=== PATIENT | female | born 1985 | race African-American/Black ===

== ENCOUNTER 2021-12-28 11:28 | Emergency (ER) | payer MEDICARE, MEDICAID ==
[~2021-12-28] VITALS: Ht 170.2 cm; Wt 75.0 kg
[2021-12-28 12:39] LABS: CLARITY URINE CLOUDY (CLEAR); COLOR URINE ORANGE (YELLOW); KETONES URINE NEGATIVE (NEGATIVE); LEUKOCYTE ESTERASE URINE TRACE (NEGATIVE); NITRITE URINE POSITIVE (NEGATIVE); OCCULT BLOOD URINE 3+ (NEGATIVE); PH URINE 6.5 (4.5-8.0); PROTEIN URINE 1+ (NEGATIVE); SPECIFIC GRAVITY URINE 1.019 (1.005-1.030); UROBILINOGEN URINE 0.2 E.U./dL (0.2-1.0)
[2021-12-28] MEDS ORDERED: PYR200 PO (13:11)
[2021-12-28] MEDS ORDERED: SULF1TAB48 PO (13:11)
[2021-12-28 13:59] VITALS: BP 126/64
== END 2021-12-28 14:00 | disposition home or self-care (01) ==
LOC: ER 12:18
DX: N39.0 Urinary tract infection, site not specified (principal); Z98.890 Other specified postprocedural states; Z86.59 Personal history of other mental and behavioral disorders
CPT/HCPCS: 81003; 81025; 99283

== ENCOUNTER 2022-01-27 09:48 | Emergency (ER) | payer MEDICARE, MEDICAID ==
[~2022-01-27] VITALS: Ht 177.8 cm; Wt 69.0 kg
[~2022-01-27 09:48] MED LIST: PYR200 PO; SULF1TAB48 PO
[2022-01-27 09:53] VITALS: BP 126/72
[2022-01-27 12:37] LABS: CLARITY URINE CLEAR (CLEAR); COLOR URINE YELLOW (YELLOW); KETONES URINE TRACE (NEGATIVE); LEUKOCYTE ESTERASE URINE NEGATIVE (NEGATIVE); NITRITE URINE POSITIVE (NEGATIVE); OCCULT BLOOD URINE TRACE (NEGATIVE); PROTEIN URINE 1+ (NEGATIVE); SPECIFIC GRAVITY URINE 1.025 (1.005-1.030)
== END 2022-01-27 13:24 | disposition left against medical advice (07) ==
LOC: ER 09:55
DX: N39.0 Urinary tract infection, site not specified (principal); F20.9 Schizophrenia, unspecified; R33.9 Retention of urine, unspecified; Z87.440 Personal history of urinary (tract) infections; J45.909 Unspecified asthma, uncomplicated
CPT/HCPCS: 81003; 81025; 82962; 99283

== ENCOUNTER 2022-07-15 22:47 | Emergency (ER) | payer MEDICARE, MEDICAID ==
[~2022-07-15] VITALS: Ht 175.3 cm; Wt 76.0 kg
[2022-07-15 23:59] VITALS: BP 125/61
[2022-07-16] MEDS ORDERED: IBUP-2028 MT (03:46)
== END 2022-07-16 04:51 | disposition home or self-care (01) ==
LOC: ER 22:47
DX: J02.9 Acute pharyngitis, unspecified (principal)
CPT/HCPCS: 99281; 99282

== ENCOUNTER 2022-09-02 06:46 | Emergency (ER) | payer MEDICARE, MEDICAID ==
[~2022-09-02] VITALS: Ht 175.3 cm; Wt 89.0 kg
[~2022-09-02 06:46] MED LIST changes: +IBUP-2028 MT
[2022-09-02 07:45] VITALS: BP 119/80
[2022-09-02] MEDS ORDERED: PERM59LI8 TP (09:19)
[2022-09-02] MEDS ORDERED: PERM60CR4 TP (09:19)
== END 2022-09-02 09:37 | disposition left against medical advice (07) ==
LOC: ER 06:46
DX: B86 Scabies (principal); J45.909 Unspecified asthma, uncomplicated
CPT/HCPCS: 99282

== ENCOUNTER 2022-12-04 03:14 | Emergency (ER) | payer MEDICARE, MEDICAID ==
[~2022-12-04] VITALS: Ht 162.6 cm; Wt 75.0 kg
[~2022-12-04 03:14] MED LIST changes: +PERM59LI8 TP; +PERM60CR4 TP
[2022-12-04 03:20] VITALS: BP 127/83
== END 2022-12-04 07:38 | disposition left against medical advice (07) ==
LOC: ER 03:32
DX: Z53.21 Procedure and treatment not carried out due to patient leaving prior to being seen by health care provider (principal)